=== PATIENT | male | born 1995 | race Caucasian/White ===

== ENCOUNTER 2024-03-27 11:48 | Emergency (ER) | payer OTHER ==
[~2024-03-27] VITALS: Wt 63.5 kg
[2024-03-27] MEDS ORDERED: Ketorolac Tromethamine 60 MG/2 ML VIAL IM ONE (12:20)
[2024-03-27] MEDS ORDERED: BUPIVACAINE 0.5% 10 ML VIAL SC ONE (12:20)
[2024-03-27] MEDS ORDERED: Clindamycin Phosphate 50 ML IV ONE (12:25)
[2024-03-27] MEDS ORDERED: CLINDAMYCIN HC300 MG PO (12:38)
[2024-03-27] MEDS ORDERED: Motrin,Rufen800 MG PO (12:38)
== END 2024-03-27 13:13 | disposition home or self-care (01) ==
LOC: ED 11:48
DX: K04.7 Periapical abscess without sinus (principal); K02.9 Dental caries, unspecified; Z88.0 Allergy status to penicillin; Z88.2 Allergy status to sulfonamides; Z91.040 Latex allergy status; Z88.5 Allergy status to narcotic agent; Z88.8 Allergy status to other drugs, medicaments and biological substances; Z98.2 Presence of cerebrospinal fluid drainage device

== ENCOUNTER 2024-04-06 15:49 | Emergency (ER) | payer OTHER ==
[~2024-04-06] VITALS: Ht 175.2 cm; Wt 63.5 kg
[~2024-04-06 15:49] MED LIST: CLINDAMYCIN HC300 MG PO; Motrin,Rufen800 MG PO
[2024-04-06] MEDS ORDERED: diphenhydrAMINE hydrochloride 50 MG/ML VIAL IV ONE (16:15)
[2024-04-06] MEDS ORDERED: SODIUM CHLORIDE 0.9% 1,000 ML IV ONE (16:15)
[2024-04-06] MEDS ORDERED: Metoclopramide Hydrochloride 10 MG/2 ML AMP IV ONE (16:15)
[2024-04-06] MEDS ORDERED: Ketorolac Tromethamine 15 MG/ML VIAL IV ONE (16:15)
[2024-04-06] MEDS ORDERED: FAMOTIDINE 50 ML IV ONE (16:15)
[2024-04-06 16:34] LABS: BASO % 0.2 % (0.0-1.0); EOS % 0.3 % (1.0-4.0); HEMATOCRIT 40.4 % (42.0-52.0); LYMPH # 0.8 10*3/uL (1.3-4.4); LYMPH % 7.9 % (27.0-41.0); MEAN CORPUSCULAR HGB 30.2 pg (27.0-31.0); MEAN CORPUSCULAR HGB CONC 33.2 g/dl (33.0-37.0); MEAN PLATELET VOLUME 9.4 fl (9.6-12.3); MONO # 0.6 10*3/uL (0.1-1.0); MONO % 6.1 % (3.0-9.0); NEUT # 8.6 10*3/uL (2.3-7.9); NEUT % 85.2 % (47.0-73.0); PLATELET COUNT AUTOMATED 280 10*3/uL (130-400); RED BLOOD COUNT 4.44 10*6/uL (4.50-5.90); WHITE BLOOD COUNT 10.1 10*3/uL (4.8-10.8)
[2024-04-06 16:56] LABS: ALKALINE PHOSPHATASE 69 U/L (46-116); BUN 6 mg/dl (9-23); CHLORIDE 108 mmol/L (98-107); LIPASE 28 U/L (12-53); POTASSIUM 3.6 mmol/L (3.4-5.1); SGPT/ALT 35 U/L (5-49); TOTAL PROTEIN 7.7 gm/dL (6.0-8.0)
[2024-04-06] MEDS ORDERED: REGLAN10 M1 PO (17:24)
[2024-04-06] MEDS ORDERED: PEPCID20 MG PO (17:24)
== END 2024-04-06 17:27 | disposition home or self-care (01) ==
LOC: ED 15:49
PROVIDERS: Emergency Medicine
DX: R10.9 Unspecified abdominal pain (principal); R11.2 Nausea with vomiting, unspecified; K08.89 Other specified disorders of teeth and supporting structures; Z88.0 Allergy status to penicillin; Z88.2 Allergy status to sulfonamides; Z91.040 Latex allergy status; Z88.8 Allergy status to other drugs, medicaments and biological substances; Z88.5 Allergy status to narcotic agent

== ENCOUNTER 2024-05-21 16:24 | Emergency (ER) | payer OTHER ==
[~2024-05-21] VITALS: Ht 172.7 cm; Wt 63.5 kg
[~2024-05-21 16:24] MED LIST changes: +PEPCID20 MG PO; +REGLAN10 M1 PO
[2024-05-21] MEDS ORDERED: BENZOCAINE 20% 11.9 GM GEL T STA (17:27)
[2024-05-21] MEDS ORDERED: Lidocaine Hydrochloride 15 ML UDC PO STA (17:27)
[2024-05-21] MEDS ORDERED: PENICILLIN V POTASSIUM 500 MG TAB PO ONE (17:30)
[2024-05-21] MEDS ORDERED: PENICILLIN VK500 MG PO (17:30)
[2024-05-21] MEDS ORDERED: Acetaminophen/Oxycodone 5 MG/325 MG TABLET PO ONE (17:30)
[2024-05-21] MEDS ORDERED: Ketorolac Tromethamine 60 MG/2 ML VIAL IM ONE (17:30)
== END 2024-05-21 17:41 | disposition home or self-care (01) ==
LOC: ED 16:24
DX: K04.7 Periapical abscess without sinus (principal); K03.81 Cracked tooth; Z88.2 Allergy status to sulfonamides; Z88.5 Allergy status to narcotic agent; Z91.040 Latex allergy status; Z88.8 Allergy status to other drugs, medicaments and biological substances